=== PATIENT | female | born 1990 | race Caucasian/White ===

== ENCOUNTER → 2018-04-03 | Outpatient (REF) | payer BC ==
[2018-04-05 14:44] LABS: HPV HYBRID CAPTURE II Negative (Negative)
== END ==
LOC: M LAB REF 18:22
DX: Z12.4 Encounter for screening for malignant neoplasm of cervix (principal)
CPT/HCPCS: G0123

== ENCOUNTER → 2020-05-26 | Outpatient (REF) | payer BC, SELFPAY | LOC: M LAB REF 14:12 | PROVIDERS: ATTEND Family Medicine | DX: Z01.411 Encounter for gynecological examination (general) (routine) with abnormal findings (principal) ==

== ENCOUNTER → 2020-10-08 | Outpatient (REF) | payer OTHER ==
[2020-10-08 18:36] LABS: HEMATOCRIT 38.4 % (36.0-47.0); HEMOGLOBIN 12.5 g/dl (12.0-15.5); MEAN CORPUSCULAR HEMOGLOBIN 30.9 pg (27.0-33.0); MEAN CORPUSCULAR HGB CONC 32.6 g/dl (32.0-36.5); MEAN CORPUSCULAR VOLUME 94.8 fl (80.0-96.0); PLATELET COUNT, AUTOMATED 251 10^3/uL (150-450); RED BLOOD COUNT 4.05 10^6/uL (4.00-5.40); WHITE BLOOD COUNT 9.9 10^3/uL (4.0-10.0)
[2020-10-08 19:11] LABS: GLUCOSE CHALLENGE TEST 1 HOUR 124 MG/DL (LESS THAN 140)
[2020-10-08 20:05] LABS: HIV 1&2 SCREEN CENTAUR NEGATIVE (NEGATIVE)
[2020-10-08 20:43] LABS: CHLAMYDIA DNA AMPLIFICATION NEGATIVE (NEGATIVE); GC DNA AMPLIFICATION NEGATIVE (NEGATIVE)
== END ==
LOC: M PLALAB 14:20
PROVIDERS: ATTEND Advanced Practice Midwife
DX: O99.211 Obesity complicating pregnancy, first trimester (principal)

== ENCOUNTER → 2020-11-30 | Outpatient (CLI) | payer OTHER ==
--- NOTE | 2020-11-30 18:27 | REP ---
INDICATION: ANATOMY COMPARISON: None. TECHNIQUE: Transabdominal obstetrical ultrasound with color Doppler evaluation. FINDINGS: Examination demonstrates a single live intrauterine in cephalic presentation. motion is identified by technologist. Placenta is noted anteriorly and posteriorly and grade 0 with findings to suggest marginal previa. Amniotic fluid volume is normal. Cervix measures 3.2 cm in length and appears closed.. Gestational age by LMP 19 weeks 5 days with MAT 04/21/2021. Gestational age by current measurements 19 weeks 3 days with MAT 04/23/2021. FHR equals 144 beats per minute. BPD: 4.6 cm at 19 weeks 5 days HC: 16.8 cm at 19 weeks 3 days AC: 13.3 cm at 18 weeks 6 days FL: 3.2 cm at 19 weeks 6 days HL: 2.9 cm at 19 weeks 2 days HC/AC: 1.26 Estimated weight 285 grams (24thpercentile). Anatomical assessment demonstrates normal structures including cranium, choroid plexus, cavum, cerebellum/posterior fossa, diaphragm, stomach, kidneys/bladder, spine, and extremities. Limited evaluation of the facial features, heart/ventricular outflow tracts, three-vessel cord and cord insertion. IMPRESSION: 1. Single live intrauterine in cephalic presentation demonstrating relatively appropriate estimated weight. 2. Findings to suggest anterior and posterior portions of the placenta with marginal previa. 3. Anatomical limitations as described above. 4. Placental evaluation and anatomical limitations warrant follow-up examination. <Electronically signed by Vlad Anaya > 11/30/20 [id number]
== END ==
LOC: M WHC 14:58
PROVIDERS: ATTEND Advanced Practice Midwife
DX: Z36.9 Encounter for antenatal screening, unspecified (principal); Z3A.19 19 weeks gestation of pregnancy; O43.192 Other malformation of placenta, second trimester

== ENCOUNTER → 2020-12-23 | Outpatient (CLI) | payer OTHER ==
--- NOTE | 2020-12-24 06:23 | REP ---
INDICATION: F/U ANATOMY COMPARISON: 11/30/2020 TECHNIQUE: Transabdominal obstetrical ultrasound with color Doppler evaluation. FINDINGS: Examination demonstrates a single live intrauterine in breech presentation. motion is identified by technologist. Amniotic fluid volume is normal. Cervix measures 3.1 cm in length and appears closed. Current examination demonstrates a bilobed versus succenturiate placenta with anterior and posterior placental lobes. The cord insertion is identified along the left inferior margin of the anterior placental lobe and there is no evidence for placenta previa. Gestational age by LMP and 1st U/S 23 weeks 0 days with MAT 04/21/2021. Gestational age by current measurements 22 weeks 4 days with MAT 04/24/2021. FHR equals 152 beats per minute. Estimated weight 504 grams (20thpercentile). Anatomical assessment demonstrates normal structures including facial profile, nose/lips, heart/ventricular outflow tracts, stomach, bladder, spine, and three-vessel cord. IMPRESSION: 1. In conjunction with prior examination anatomical assessment is complete and normal. 2. Bilobed versus succenturiate placenta as described above. <Electronically signed by Vlad Anaya > 12/24/20 [id number]
== END ==
LOC: M WHC 12:28
PROVIDERS: ATTEND Advanced Practice Midwife
DX: O99.212 Obesity complicating pregnancy, second trimester (principal); O44.20 Partial placenta previa NOS or without hemorrhage, unspecified trimester; Z3A.22 22 weeks gestation of pregnancy

== ENCOUNTER → 2021-01-29 | Outpatient (REF) | payer OTHER ==
[2021-01-29 11:23] LABS: HEMATOCRIT 36.7 % (36.0-47.0); HEMOGLOBIN 12.2 g/dl (12.0-15.5); MEAN CORPUSCULAR HEMOGLOBIN 31.6 pg (27.0-33.0); MEAN CORPUSCULAR HGB CONC 33.2 g/dl (32.0-36.5); MEAN CORPUSCULAR VOLUME 95.1 fl (80.0-96.0); PLATELET COUNT, AUTOMATED 206 10^3/uL (150-450); RED BLOOD COUNT 3.86 10^6/uL (4.00-5.40); WHITE BLOOD COUNT 8.8 10^3/uL (4.0-10.0)
== END ==
LOC: M PLALAB 08:20
PROVIDERS: ATTEND Advanced Practice Midwife
DX: O99.212 Obesity complicating pregnancy, second trimester (principal)

== ENCOUNTER → 2021-03-02 | Outpatient (CLI) | payer OTHER ==
--- NOTE | 2021-03-03 06:17 | REP ---
INDICATION: PLACENTAL ABNORMALITY,EVALUATE PLACENTA,GROWTH COMPARISON: 12/13/2020 TECHNIQUE: Transabdominal obstetrical ultrasound with color Doppler evaluation. FINDINGS: Examination demonstrates a single live intrauterine in breech presentation. motion is identified by technologist. Placenta is noted with anterior and posterior lobes and grade 2 without evidence for placenta previa or abruption. Amniotic fluid volume is normal. Cervix measures 3.8 cm in length and appears closed.. Selected gestational age: 32 weeks 6 days with MAT 04/21/2021. Gestational age by current measurements 33 weeks 2 days with MAT 04/18/2021. FHR equals 149 beats per minute. BPD: 8.6 cm at 34 weeks 4 days HC: 31.1 cm at 34 weeks 5 days AC: 28.7 cm at 32 weeks 5 days FL: 6.3 cm at 32 weeks 3 days HL: 5.5 cm at 32 weeks 1 day HC/AC: 1.08 Estimated weight 2089 grams (44thpercentile). BONITA: 23.9 cm (8.3-24.5) Umbilical artery SD ratio: 2.72 (1.80-3.78) IMPRESSION: 1. Single live advanced gestation in breech presentation demonstrating appropriate interval growth. 2. Amniotic fluid index is upper limits of normal. 3. Bilobed appearance to the placenta. <Electronically signed by Vlad Anaya > 03/03/21 0601
== END ==
LOC: M WHC 13:44
PROVIDERS: ATTEND Advanced Practice Midwife
DX: Z36.89 Encounter for other specified antenatal screening (principal); Z3A.33 33 weeks gestation of pregnancy

== ENCOUNTER → 2021-03-19 | Outpatient (REF) | payer OTHER | LOC: M SFHCWAGY 16:44 | PROVIDERS: ATTEND Advanced Practice Midwife | DX: O99.343 Other mental disorders complicating pregnancy, third trimester (principal) ==

== ENCOUNTER 2021-03-31 09:04 | Inpatient (IN) | payer OTHER ==
[~2021-03-31] VITALS: Ht 160 cm; Wt 99.9 kg
[2021-03-31] VITALS (24 sets, daily range): BP systolic 136–186; BP diastolic 79–112
[2021-03-31] MEDS ORDERED: PRENTAB9 PO (10:00)
[2021-03-31] MEDS ORDERED: OMEP-218 (10:00)
[2021-03-31] MEDS ORDERED: CITA20TA6 (10:00)
[2021-03-31] MEDS ORDERED: ERGO500029 (10:00)
[2021-03-31 10:05] LABS: HEMATOCRIT 39.5 % (36.0-47.0); HEMOGLOBIN 13.3 g/dl (12.0-15.5); MEAN CORPUSCULAR HEMOGLOBIN 31.2 pg (27.0-33.0); MEAN CORPUSCULAR HGB CONC 33.7 g/dl (32.0-36.5); MEAN CORPUSCULAR VOLUME 92.7 fl (80.0-96.0); PLATELET COUNT, AUTOMATED 175 10^3/uL (150-450); RED BLOOD COUNT 4.26 10^6/uL (4.00-5.40); WHITE BLOOD COUNT 9.3 10^3/uL (4.0-10.0)
[2021-03-31 10:23] LABS: TOTAL PROTEIN,RANDOM URINE 880.5 MG/DL (0.0-12.0)
[2021-03-31 10:33] LABS: ALT/SGPT 10 U/L (12-78); BILIRUBIN,TOTAL 0.3 MG/DL (0.2-1.0); CREATININE FOR GFR 0.75 MG/DL (0.55-1.30); GLOMERULAR FILTRATION RATE > 60.0 (>60); LDH LACTATE DEHYDROGENASE 309 U/L (84-246); URIC ACID 7.2 MG/DL (2.6-6.0)
[2021-03-31] MEDS ORDERED: LACTATED RINGER'S 1000 ML IV STA (13:17)
[2021-03-31] MEDS ORDERED: BICITRA 30ML SOLN UDC PO ONE (13:20)
[2021-03-31] MEDS ORDERED: ceFAZolin SOD 2 GM in IV 1 EA IV ONE (13:20)
[2021-03-31] MEDS ORDERED: MORPHINE PRES-FREE INJ 10 MG/10 ML VIAL (J2274) As Ordered ONE (14:15)
[2021-03-31] MEDS ORDERED: OXYTOCIN 30 UNITS IN 0.9% NaCl 500ML IV BAG (J2590) As Ordered ONE ×2 (14:16→16:30)
--- NOTE | 2021-03-31 14:29 | HPE ---
HISTORY AND PHYSICAL DATE OF ADMISSION: 03/31/2021 ADMITTING DIAGNOSIS: Kaity is a 31-year-old 1, para 0 at 37 weeks' gestation, EDC of 04/21/2021 based on last menstrual period and confirmed by first trimester ultrasound. She presents to labor and delivery today following a routine appointment in the office where she was noted to have a blood pressure in the severe range. HISTORY OF PRESENT ILLNESS: She was diagnosed with preeclampsia last week and has undergone reassuring antepartal testing. She denies current headache, visual disturbances, epigastric pain and right upper quadrant discomfort. She denies contractions, vaginal bleeding, and leakage of fluid. Her care was initiated at [facility] in the first trimester. course complicated by a history of anxiety and depression, obesity. She did have a marginal placenta previa that resolved. She has a bilobed placenta versus a succenturiate placenta with anterior and posterior lobes noted on ultrasound 03/03/2021 that does report no evidence of previa. Preeclampsia diagnosed at 36 weeks gestation with a worsening of blood pressures and labs today. OBSTETRIC HISTORY: Prima . OBSTETRIC LABS: Blood type is O positive. Antibody screen is negative. Her syphilis is nonreactive. Chlamydia and gonorrhea negative. Hepatitis B surface antigen negative. Hepatitis C antibody nonreactive. HIV nonreactive. Rubella immune. Gestational diabetic screening elevated at 139. I do not see that she underwent a three hour glucose tolerance test. Urine culture with no growth and her GBS was positive. PAST MEDICAL HISTORY: Anxiety, depression. SURGERIES: Knee surgery times two, breast reduction, fasciotomy for compartment syndrome of both knees. FAMILY HISTORY: Noncontributory. SOCIAL HISTORY: The patient is . Her is at bedside. She is a nonsmoker. She denies alcohol and drug use. There is no history of sexually transmitted infections and she denies history of abuse, physical, sexual and emotional. ALLERGIES: No known drug allergies. CURRENT MEDICATIONS: vitamin. OBJECTIVE: Temperature 98.7, pulse 71, blood pressures are 144/88, 151/93. heart rate is 130 with moderate variability, positive accelerations, negative decelerations. There is no pattern of contractions. Her abdomen is gravid. Breech presentation which is confirmed by bedside ultrasound today. Sterile vaginal exam is deferred. Her repeat preeclamptic labs with a spot urine of 4.73. Hemoglobin 13.3, hematocrit 39.5, and platelets are 175. Her creatinine is 0.75. AST 26, ALT 10, LDH 309. Uric acid 7.2. ASSESSMENT: Intrauterine at 37 weeks gestation. heart rate category 1. Breech presentation. Preeclampsia, worsening. PLAN: Per consult with Dr. Shlomo Gutierrez, admit the patient to labor and delivery. Move towards delivery today via primary section. Routine laboratories. IV fluid bolus, surgical antibiotic prophylaxis. The patient has been counseled regarding risks, benefits, and alternatives. All of her and her 's questions have been answered. She has been verbally consented for blood products if they are necessary.
[2021-03-31] MEDS: LR 1,000 ML IV SCH ×2 (14:50→21:20)
[2021-03-31] MEDS ORDERED: METOCLOPRAMIDE INJ 10MG/2ML VIAL (J2765 PER 1) IV PRN (15:09)
[2021-03-31] MEDS ORDERED: NALOXONE INJ 0.4MG/1ML VIAL (J2310 PER 1MG) IV PRN ×2 (15:09)
[2021-03-31] MEDS ORDERED: ONDANSETRON 4MG/2ML VIAL IV PRN ×3 (15:09→16:20)
[2021-03-31] MEDS ORDERED: NALBUPHINE HCL 10 MG/ML AMP (J2300) IV PRN ×2 (15:09→16:20)
[2021-03-31] MEDS ORDERED: diphenhydrAMINE 50MG/ML VIAL (J1200) IV PRN (15:09)
[2021-03-31] MEDS ORDERED: dexameTHASONE 4 MG/ML 1ML VIAL (J1100 PER 1MG) As Ordered ONE (15:18)
[2021-03-31] MEDS ORDERED: ONDANSETRON 4MG/2ML VIAL As Ordered ONE (15:18)
[2021-03-31] MEDS ORDERED: KETOROLAC 60MG 2ML VIAL As Ordered ONE (15:19)
[2021-03-31] MEDS: OXYTOCIN DRIP 30 UNITS in IV 1 EA IV SCH ×2 (15:21→16:38)
[2021-03-31] MEDS ORDERED: PHENYLephrine 500MCG 5ML (100MCG/ML) SYRINGE As Ordered ONE (15:40)
[2021-03-31 15:46] LABS: CORD GAS ABE A -6.1; CORD GAS O2 SAT A 43.7 %; CORD GAS PCO2 A 54.6 mmHg; CORD GAS PH A 7.224 UNITS; CORD GAS PO2 A 22.4 mmHg; CORD GAS SBC A 18.3 MEQ/L; CORD GAS TCO2 A 23.7 MEQ/L
[2021-03-31 15:48] LABS: CORD GAS ABE V -6.4; CORD GAS HCO3 V 19.4 MEQ/L; CORD GAS O2 SAT V 77.4 %; CORD GAS PCO2 V 39.9 mmHg; CORD GAS PH V 7.305 UNITS; CORD GAS PO2 V 34.6 mmHg; CORD GAS SBC V 18.8 MEQ/L; CORD GAS TCO2 V 20.6 MEQ/L
[2021-03-31] MEDS ORDERED: IBUPROFEN 600MG TAB PO PRN (15:50)
[2021-03-31] MEDS ORDERED: MEASLES,MUMPS,RUBELLA VACCINE INJ (MMR-II) (90707) SC SCH (15:50)
[2021-03-31] MEDS ORDERED: SIMETHICONE 80MG CHEW TAB PO PRN (15:50)
[2021-03-31] MEDS ORDERED: METHYLERGONOVINE MALEATE 0.2 MG/ML VIAL (J2210) IM PRN (15:50)
[2021-03-31] MEDS ORDERED: RHOGAM 300 MCG (1500 IU) INJ (J2790) IM SCH (15:50)
[2021-03-31] MEDS ORDERED: HYDROMORPHONE HCL 0.5 MG/ 0.5 ML SYRINGE (J1170 PER 1) IV PRN (16:20)
[2021-03-31] MEDS ORDERED: oxyCODONE 5MG TAB PO PRN (16:20)
[2021-03-31] MEDS ORDERED: fentaNYL 100 MCG/2 ML INJECTION (J3010) IV PRN (16:20)
[2021-03-31] MEDS ORDERED: MEPERIDINE INJ 25 MG/ML VIAL (J2175) IV PRN (16:20)
[2021-03-31] MEDS ORDERED: OXYTOCIN DRIP 30 UNITS in IV 1 EA IV SCH (16:35)
--- NOTE | 2021-03-31 17:29 | RO ---
OPERATIVE NOTE DATE OF OPERATION: 03/31/2021 Kaity is a 31-year-old female, para 0, who was admitted at 37 weeks gestation after being diagnosed with preeclampsia. She was also found to be breech on admission. After an extensive counseling with the patient and her partner, decision was made to proceed with delivery via a section. PREOPERATIVE DIAGNOSIS: 1. Intrauterine at 37 weeks gestation. 2. Preeclampsia. 3. Breech presentation, desires primary section. POSTOPERATIVE DIAGNOSIS: 1. Intrauterine at 37 weeks gestation. 2. Preeclampsia. 3. Breech presentation, desires primary section. 4. A bilobed placenta which what appeared would be a vasa previa, both an anterior and posterior segment of the placenta noted. PROCEDURE: Primary low transverse section. SURGEON: Shlomo Gutierrez DO MULTIFOCAL BUTTON INSPECTOR: Sol Greco CNM ANESTHESIA: Spinal. FINDINGS: Live female infant in double footling breech position with what appeared to be a vasa previa and two anterior and posterior lobes of the placenta. Normal appearing tubes and ovaries. was 8-9, weight 5 lb, 13 oz. i DESCRIPTION OF PROCEDURE: After obtaining informed consent, the patient was taken to the operating room where a spinal anesthetic was found to be adequate. She was then draped and prepped in the usual sterile fashion in the supine position. At this point, a York catheter was placed in the bladder for drainage. A Pfannenstiel incision was made with the first knife, carried down to the fascia with the help of Kandace Greco. The fascia was incised in a midline fashion and carried through laterally. The superior aspect of the fascia was then grasped with a Mallory clamp, tented off and dissected off the rectus muscles sharply. The inferior aspect was dissected off in a similar fashion. The rectus muscles were in midline fashion. The peritoneum was identified. The peritoneal cavity was entered bluntly. Superior and inferior dissection in the peritoneum was then done with good visualization of the bladder. At this point, a Mobius skin retractor was placed. A low transverse uterine incision was made. The was delivered in atraumatic fashion via breech extraction. The nose and mouth were bulb suctioned. The cord was doubly clamped and cut and the infant was handed over to awaiting warmer. Cord blood and cord gas were sent. The placenta was removed manually. The uterus was cleared of all clot and debris and the uterine incision was repaired in two separate layers of 0 Vicryl suture. The pelvis was copiously with normal saline and suctioned out. Attention turned to the peritoneum which was closed in a running fashion using 2-0 Vicryl. The fascia was closed in two separate segments of 0 Vicryl sutures and the skin was reapproximated in subcuticular fashion using 3-0 Vicryl on a Gualberto. Steri-Strips were placed. The patient tolerated the procedure well. She was then transferred to recovery room in stable condition. [facility]
[2021-03-31] MEDS: KETOROLAC 30 MG/ML 1ML VIAL IV SCH (21:17)
[2021-03-31] MEDS: CitaloPRAM (CeleXA) 20 MG TAB PO SCH (21:17)
[2021-03-31] MEDS: DOCUSATE SODIUM 100MG CAPSULE PO SCH (21:17)
[2021-03-31] MEDS ORDERED: LABETALOL 100MG/20ML VIAL IV STA (22:26)
[2021-03-31] MEDS ORDERED: LABETALOL 100MG/20ML VIAL As Ordered ONE (22:27)
[2021-03-31] MEDS: LABETALOL 200 MG TAB PO SCH (22:59)
[2021-04-01] MEDS ORDERED: LR 500 ML IV ONE ×3 (00:05→04:05)
[2021-04-01 02:00] VITALS: BP 138/90
[2021-04-01] MEDS: KETOROLAC 30 MG/ML 1ML VIAL IV SCH ×2 (03:37→09:20)
[2021-04-01] MEDS: LR 1,000 ML IV SCH (05:20)
[2021-04-01 05:51] VITALS: BP 158/102
[2021-04-01 08:30] LABS: HEMATOCRIT 34.3 % (36.0-47.0); HEMOGLOBIN 11.4 g/dl (12.0-15.5); MEAN CORPUSCULAR HEMOGLOBIN 31.3 pg (27.0-33.0); MEAN CORPUSCULAR HGB CONC 33.2 g/dl (32.0-36.5); MEAN CORPUSCULAR VOLUME 94.2 fl (80.0-96.0); PLATELET COUNT, AUTOMATED 186 10^3/uL (150-450); RED BLOOD COUNT 3.64 10^6/uL (4.00-5.40); WHITE BLOOD COUNT 18.8 10^3/uL (4.0-10.0)
[2021-04-01] MEDS: PRENATAL VITAMINS CHEWABLE TABLET PO SCH (09:19)
[2021-04-01] MEDS: DOCUSATE SODIUM 100MG CAPSULE PO SCH ×2 (09:19→21:11)
[2021-04-01] MEDS: LABETALOL 200 MG TAB PO SCH ×2 (09:20→21:11)
[2021-04-01 10:00] VITALS: BP 138/90
[2021-04-01] MEDS ORDERED: SLF 3 ML SYR IV PRN (10:55)
[2021-04-01] MEDS: PERCOCET 5MG/325MG TAB PO PRN ×2 (13:21→18:15)
[2021-04-01 14:00] VITALS: BP 148/92
[2021-04-01] MEDS: SLF 3 ML SYR IV SCH ×2 (14:00→22:00)
[2021-04-01 18:00] VITALS: BP 150/96
[2021-04-01] MEDS: IBUPROFEN 800 MG TAB PO PRN (18:13)
[2021-04-01] MEDS: CitaloPRAM (CeleXA) 20 MG TAB PO SCH (21:11)
[2021-04-01 22:00] VITALS: BP 156/96
[2021-04-02 02:00] VITALS: BP 158/102
[2021-04-02] MEDS: PERCOCET 5MG/325MG TAB PO PRN ×3 (02:30→20:01)
[2021-04-02] MEDS: IBUPROFEN 800 MG TAB PO PRN ×3 (03:09→22:31)
[2021-04-02 06:00] VITALS: BP 152/96
--- NOTE | 2021-04-02 07:32 | IPNPDOC ---
Progress Note Date of Service: Apr 02, 2021 Progress Note SUBJECT: still with some pain, tolerating diet OBJECTIVE: VITAL SIGNS: Within normal limits, afebrile. Alert and oriented times three. Breath sounds clear to auscultation. Heart rate: Regular rate and rhythm, no murmurs, rubs or gallops. Abdomen: Fundus firm at U-2. Soft, NTTP. [Minimal] lochia. ASSESSMENT:POD#2 s/p PLAN: Possible discharge today routine post op care VS, I&O, 24H, Juan Carlos Vital Signs/I&O Vital Signs Date Time Temp Pulse Resp B/P (MAP) Pulse Ox O2 Delivery O2 Flow Rate FiO2 04/02/21 06:00 97.6 86 14 152/96 (114) 96 Room Air I&O- Last 24 Hours up to 6 AM 04/02/21 06:00 Output Total 1100 ml Balance -1100 ml Laboratory Data 24H LABS Laboratory Tests 2 04/01/21 07:51: Nucleated Red Blood Cells % (auto) 0.0 CBC/BMP Laboratory Tests 04/01/21 07:51 PILO GARCIA MD Apr 02, 2021 07:32
[2021-04-02 08:15] VITALS: BP 152/96
[2021-04-02] MEDS: DOCUSATE SODIUM 100MG CAPSULE PO SCH ×2 (09:43→20:49)
[2021-04-02] MEDS: PRENATAL VITAMINS CHEWABLE TABLET PO SCH (09:44)
[2021-04-02] MEDS: LABETALOL 200 MG TAB PO SCH ×2 (09:44→20:49)
[2021-04-02] MEDS ORDERED: LR 1,000 ML IV ONE (14:30)
[2021-04-02 18:01] VITALS: BP 148/92
[2021-04-02] MEDS: CitaloPRAM (CeleXA) 20 MG TAB PO SCH (20:49)
[2021-04-02 20:52] VITALS: BP 159/92
[2021-04-02] MEDS: SLF 3 ML SYR IV SCH (22:00)
[2021-04-03] MEDS: PERCOCET 5MG/325MG TAB PO PRN ×2 (02:10→09:29)
[2021-04-03] MEDS: IBUPROFEN 800 MG TAB PO PRN (05:56)
[2021-04-03] MEDS: SLF 3 ML SYR IV SCH (05:56)
[2021-04-03 06:22] VITALS: BP 156/82
[2021-04-03] MEDS: PRENATAL VITAMINS CHEWABLE TABLET PO SCH (09:28)
[2021-04-03] MEDS: DOCUSATE SODIUM 100MG CAPSULE PO SCH (09:28)
[2021-04-03] MEDS: LABETALOL 200 MG TAB PO SCH (09:29)
[2021-04-03 09:40] VITALS: BP 161/98
[2021-04-03 09:55] VITALS: BP 164/98
[2021-04-03] MEDS ORDERED: LABETALOL 100MG TAB PO STA (10:07)
[2021-04-03] MEDS ORDERED: LABE20TAB PO (10:49)
[2021-04-03] MEDS ORDERED: PERCOCET PO (10:49)
[2021-04-03] MEDS ORDERED: IBUP80TA PO (10:49)
--- NOTE | 2021-04-03 10:51 | DS.PDOC ---
Discharge Summary General Date of Admission Mar 31, 2021 at 13:02 Date of Discharge 04/03/21 Attending Physician: PILO GARCIA MD Discharge Summary PROCEDURES PERFORMED DURING STAY: 1. Spinal anesthesia 2. section . ADMITTING DIAGNOSES: 1. Preeclampsia 2. Breech presentation. DISCHARGE DIAGNOSES: 1. Preeclampsia 2. Breech presentation. 3. Vasa previa COMPLICATIONS/CHIEF COMPLAINT: Elevated Bp. HISTORY OF PRESENT ILLNESS: Mrs. Mir presented for section for breech presentation preeclampsia She underwent a repeat section, productive of live born female infant a Apgars were 8 and 9 weight was 5 lbs. 13 oz. vasa previa was diagnosed time section. Patient did well postoperatively by postoperative day #2 had met all discharge criteria is as discharged home in stable condition DISCHARGE MEDICATIONS: Please see below. ALLERGIES: Please see below. PHYSICAL EXAMINATION ON DISCHARGE: VITAL SIGNS: Please see below. GENERAL: No distress HEENT: WNL ABDOMINAL EXAMINATION: Fundus firm. Dressing intact EXTREMITIES: Equal strength and motion SKIN: Intact NEUROLOGICAL EXAMINATION: Grossly intact PSYCHIATRIC EXAMINATION: Appropriate LABORATORY DATA: Please see below. PROGNOSIS: Good ACTIVITY: As tolerated. Pelvic rest. DIET: As tolerated DISCHARGE PLAN: Discharge today. Remove dressing day 5 DISPOSITION: Home DISCHARGE INSTRUCTIONS: 1. Pelvic rest. Continue vitamins. Medications as ordered. Call with fever, nausea, vomiting, chills, foul lochia, wound exudate or evidence infection. RTO early next week for blood pressure check. DISCHARGE CONDITION: Stable Vital Signs/I&Os Vital Signs Date Time Temp Pulse Resp B/P (MAP) Pulse Ox O2 Delivery O2 Flow Rate FiO2 04/03/21 09:55 164/98 (120) 04/03/21 09:40 97.0 85 18 97 Room Air Discharge Medications Scheduled Labetalol HCl (Labetalol HCl) 200 Mg Tablet, 200 MG PO TID No.137/Iron/Folic Acd ( Vitamin Tablet) 1 Each Tablet, 1 TAB PO DAILY, (Reported) Scheduled PRN Ibuprofen (Ibuprofen) 800 Mg Tablet, 800 MG PO Q8HP PRN for PAIN LEVEL 6-10 Oxycodone/Acetaminophen (Oxycodone-Acetaminophen 5-325) 1 Each Tablet, 1 TAB PO Q4H PRN for MILD/MODERATE PAIN (PS 1-7) Miscellaneous Medications Citalopram Hydrobromide (Citalopram HBr) 20 Mg Tablet, (Reported) Ergocalciferol (Vitamin D2) (Vitamin D2) 50,000 Units Cap, (Reported) Omeprazole (Omeprazole) 20 Mg Capsule., (Reported) Allergies Coded Allergies: No Known Allergies (Unverified , 03/31/21) ZEYAD ENG MD. Apr 03, 2021 10:51
[2021-04-03 10:52] VITALS: BP 157/91
== END 2021-04-03 13:25 | disposition home or self-care (01) | DRG 788 ==
LOC: M LDO 09:04 → M LDI 13:02 → M OBS 17:51
PROVIDERS: ADMIT Advanced Practice Midwife; ATTEND Advanced Practice Midwife
PROC: 10D00Z1 Extraction of Products of Conception, Low, Open Approach (ICD-10-PCS; principal; 2021-03-31 13:40)
DX: O32.1XX0 Maternal care for breech presentation, not applicable or unspecified (principal); Z3A.37 37 weeks gestation of pregnancy; Z37.0 Single live birth; O99.824 Streptococcus B carrier state complicating childbirth; O99.214 Obesity complicating childbirth; E66.9 Obesity, unspecified; O69.4XX0 Labor and delivery complicated by vasa previa, not applicable or unspecified; O14.04 Mild to moderate pre-eclampsia, complicating childbirth

== ENCOUNTER → 2021-08-27 | Outpatient (CLI) | payer BC, OTHER ==
[~2021-08-27] MED LIST: CITA20TA6; ERGO500029; IBUP80TA PO; LABE20TAB PO; OMEP-218; PERCOCET PO; PRENTAB9 PO
[2021-08-27 15:28] LABS: BASO # 0.1 10^3/uL (0.0-0.2); BASO % 0.9 % (0.0-1.0); EOS # 0.2 10^3/uL (0.0-0.5); EOS % 2.5 % (0.0-3.0); HEMATOCRIT 41.7 % (36.0-47.0); HEMOGLOBIN 14.2 g/dl (12.0-15.5); LYMPH # 2.7 10^3/uL (1.5-5.0); LYMPH % 34.3 % (24.0-44.0); MEAN CORPUSCULAR HEMOGLOBIN 31.8 pg (27.0-33.0); MEAN CORPUSCULAR HGB CONC 34.1 g/dl (32.0-36.5); MEAN CORPUSCULAR VOLUME 93.3 fl (80.0-96.0); MONO # 0.7 10^3/uL (0.0-0.8); MONO % 9.2 % (2.0-8.0); NEUTROPHILS # 4.2 10^3/uL (1.5-8.5); NEUTROPHILS % 52.5 % (36.0-66.0); PLATELET COUNT, AUTOMATED 266 10^3/uL (150-450); RED BLOOD COUNT 4.47 10^6/uL (4.00-5.40); WHITE BLOOD COUNT 7.9 10^3/uL (4.0-10.0)
== END ==
LOC: M PLALAB 12:03
PROVIDERS: ATTEND Family Medicine
DX: L65.9 Nonscarring hair loss, unspecified (principal)

== ENCOUNTER → 2021-09-15 | Outpatient (CLI) | payer BC | LOC: M LABSMTC 12:40 | PROVIDERS: ATTEND Pediatrics | DX: Z20.822 Contact with and (suspected) exposure to COVID-19 (principal) | CPT/HCPCS: C9803; U0003 ==

== ENCOUNTER → 2021-10-04 | Outpatient (CLI) | payer BC | LOC: M LABSMTC 13:37 | PROVIDERS: ATTEND Pediatrics | DX: Z11.52 Encounter for screening for COVID-19 (principal) | CPT/HCPCS: C9803; U0003 ==

== ENCOUNTER → 2021-10-27 | Outpatient (REF) ==
[~2021-10-27] MED LIST changes: +OMEP-173; -OMEP-218
== END ==
LOC: M LABSMTC 11:44
PROVIDERS: ATTEND Pediatrics
DX: Z11.52 Encounter for screening for COVID-19 (principal)

== ENCOUNTER → 2023-10-04 | Outpatient (CLI) | payer BC, OTHER | LOC: M PLALAB 10:09 | PROVIDERS: ATTEND Advanced Practice Midwife | DX: Z01.419 Encounter for gynecological examination (general) (routine) without abnormal findings (principal) ==

== ENCOUNTER → 2023-10-25 | Outpatient (CLI) | payer BC | LOC: M WHC 13:13 | PROVIDERS: ATTEND Advanced Practice Midwife | DX: N64.52 Nipple discharge (principal); R92.333 Mammographic heterogeneous density, bilateral breasts; N60.02 Solitary cyst of left breast | CPT/HCPCS: 76642; 77066; G0279 ==

== ENCOUNTER → 2024-01-17 | Outpatient (CLI) | payer BC ==
[2024-01-17 14:16] LABS: BASO # 0.1 10^3/uL (0.0-0.2); BASO % 0.9 % (0.0-1.0); EOS # 0.2 10^3/uL (0.0-0.5); EOS % 2.8 % (0.0-3.0); HEMATOCRIT 39.8 % (36.0-47.0); HEMOGLOBIN 13.5 g/dl (12.0-15.5); LYMPH # 2.2 10^3/uL (1.5-5.0); LYMPH % 39.6 % (24.0-44.0); MEAN CORPUSCULAR HEMOGLOBIN 31.7 pg (27.0-33.0); MEAN CORPUSCULAR HGB CONC 33.9 g/dl (32.0-36.5); MEAN CORPUSCULAR VOLUME 93.4 fl (80.0-96.0); MONO # 0.4 10^3/uL (0.0-0.8); MONO % 6.9 % (2.0-8.0); NEUTROPHILS # 2.8 10^3/uL (1.5-8.5); NEUTROPHILS % 49.4 % (36.0-66.0); PLATELET COUNT, AUTOMATED 303 10^3/uL (150-450); RED BLOOD COUNT 4.26 10^6/uL (4.00-5.40); WHITE BLOOD COUNT 5.7 10^3/uL (4.0-10.0)
[2024-01-17 14:46] LABS: ALBUMIN 3.9 G/DL (3.2-5.2); ALKALINE PHOSPHATASE 57 U/L (46-116); ALT/SGPT 46 U/L (7.0-40); AST/SGOT 35 U/L (<34); BILIRUBIN,DIRECT 0.1 MG/DL (<0.4); BILIRUBIN,TOTAL 0.4 MG/DL (0.3-1.2); BLOOD UREA NITROGEN 6 MG/DL (9-23); CARBON DIOXIDE LEVEL 29 MMOL/L (20-31); CHLORIDE LEVEL 103 MMOL/L (98-107); CREATININE FOR GFR 0.59 MG/DL (0.55-1.30); GLOMERULAR FILTRATION RATE > 60.0 (>60); GLUCOSE, FASTING 91 MG/DL (60-100); POTASSIUM SERUM 4.2 MMOL/L (3.5-5.1); SODIUM LEVEL 137 MMOL/L (136-145); TOTAL PROTEIN 6.8 G/DL (5.7-8.2)
[2024-01-17 14:47] LABS: THYROID STIMULATING HORMONE 1.916 uIU/ML (0.55-4.78)
== END ==
LOC: M RAD 13:13
PROVIDERS: ATTEND Family Medicine
DX: Z00.00 Encounter for general adult medical examination without abnormal findings (principal); K59.00 Constipation, unspecified

== ENCOUNTER → 2024-03-06 | Outpatient (CLI) | payer BC | LOC: M RAD 10:21 | PROVIDERS: ATTEND Registered Nurse | DX: M79.641 Pain in right hand (principal) ==

== ENCOUNTER → 2024-12-06 | Outpatient (CLI) | payer BC ==
[2024-12-06 14:32] LABS: BASO # 0.1 10^3/uL (0.0-0.2); BASO % 1.2 % (0.0-1.0); EOS # 0.1 10^3/uL (0.0-0.5); EOS % 2.3 % (0.0-3.0); HEMATOCRIT 39.8 % (36.0-47.0); HEMOGLOBIN 13.4 g/dl (12.0-15.5); LYMPH # 1.6 10^3/uL (1.5-5.0); LYMPH % 32.1 % (24.0-44.0); MEAN CORPUSCULAR HEMOGLOBIN 32.1 pg (27.0-33.0); MEAN CORPUSCULAR HGB CONC 33.7 g/dl (32.0-36.5); MEAN CORPUSCULAR VOLUME 95.2 fl (80.0-96.0); MONO # 0.4 10^3/uL (0.0-0.8); MONO % 8.6 % (2.0-8.0); NEUTROPHILS # 2.8 10^3/uL (1.5-8.5); NEUTROPHILS % 55.4 % (36.0-66.0); PLATELET COUNT, AUTOMATED 225 10^3/uL (150-450); RED BLOOD COUNT 4.18 10^6/uL (4.00-5.40); WHITE BLOOD COUNT 5.1 10^3/uL (4.0-10.0)
[2024-12-06 14:58] LABS: IMMUNOGLOBULIN A 181.5 MG/DL (40-350)
[2024-12-06 15:00] LABS: ALBUMIN 3.8 G/DL (3.2-5.2); ALKALINE PHOSPHATASE 52 U/L (35-104); ALT/SGPT 27 U/L (7.0-40); AST/SGOT 21 U/L (<34); BILIRUBIN,TOTAL 0.6 MG/DL (0.3-1.2); BLOOD UREA NITROGEN 7 MG/DL (9-23); CALCIUM LEVEL 8.6 MG/DL (8.5-10.1); CARBON DIOXIDE LEVEL 26 MMOL/L (20-31); CHLORIDE LEVEL 106 MMOL/L (98-107); CREATININE FOR GFR 0.63 MG/DL (0.55-1.30); GLOMERULAR FILTRATION RATE > 60.0 (>60); GLUCOSE, FASTING 84 MG/DL (60-100); POTASSIUM SERUM 4.7 MMOL/L (3.5-5.1); SODIUM LEVEL 142 MMOL/L (136-145)
== END ==
LOC: M PLALAB 08:32
PROVIDERS: ATTEND Internal Medicine Gastroenterology
DX: R19.4 Change in bowel habit (principal)

== ENCOUNTER → 2024-12-06 | Outpatient (CLI) | payer BC ==
[2024-12-06 14:35] LABS: BASO # 0.1 10^3/uL (0.0-0.2); BASO % 1.2 % (0.0-1.0); EOS # 0.1 10^3/uL (0.0-0.5); EOS % 2.7 % (0.0-3.0); HEMATOCRIT 39.9 % (36.0-47.0); HEMOGLOBIN 13.4 g/dl (12.0-15.5); LYMPH # 1.8 10^3/uL (1.5-5.0); LYMPH % 33.8 % (24.0-44.0); MEAN CORPUSCULAR HEMOGLOBIN 32.1 pg (27.0-33.0); MEAN CORPUSCULAR HGB CONC 33.6 g/dl (32.0-36.5); MEAN CORPUSCULAR VOLUME 95.5 fl (80.0-96.0); MONO # 0.5 10^3/uL (0.0-0.8); MONO % 8.8 % (2.0-8.0); NEUTROPHILS # 2.8 10^3/uL (1.5-8.5); NEUTROPHILS % 53.1 % (36.0-66.0); PLATELET COUNT, AUTOMATED 223 10^3/uL (150-450); RED BLOOD COUNT 4.18 10^6/uL (4.00-5.40); WHITE BLOOD COUNT 5.2 10^3/uL (4.0-10.0)
[2024-12-06 15:01] LABS: ALBUMIN 3.8 G/DL (3.2-5.2); ALKALINE PHOSPHATASE 52 U/L (35-104); ALT/SGPT 29 U/L (7.0-40); AST/SGOT 20 U/L (<34); BILIRUBIN,TOTAL 0.6 MG/DL (0.3-1.2); BLOOD UREA NITROGEN 6 MG/DL (9-23); CALCIUM LEVEL 8.8 MG/DL (8.5-10.1); CARBON DIOXIDE LEVEL 24 MMOL/L (20-31); CHLORIDE LEVEL 108 MMOL/L (98-107); CHOLESTEROL LEVEL 170 MG/DL (<200); CHOLESTEROL RISK RATIO 3.81 (<5); CREATININE FOR GFR 0.65 MG/DL (0.55-1.30); GLOMERULAR FILTRATION RATE > 60.0 (>60); GLUCOSE, FASTING 82 MG/DL (60-100); HDL CHOLESTEROL 44.6 MG/DL (>40); NON-HDL-C 125.4 MG/DL; POTASSIUM SERUM 4.9 MMOL/L (3.5-5.1); SODIUM LEVEL 141 MMOL/L (136-145); TRIGLYCERIDES LEVEL 122 MG/DL (<150)
[2024-12-06 15:02] LABS: THYROID STIMULATING HORMONE 1.561 uIU/ML (0.55-4.78)
== END ==
LOC: M PLALAB 08:30
PROVIDERS: ATTEND Family Medicine
DX: K59.00 Constipation, unspecified (principal)

== ENCOUNTER → 2024-12-08 | Outpatient (REF) | payer BC | LOC: M LAB REF 12:02 | PROVIDERS: ATTEND Internal Medicine Gastroenterology | DX: R19.4 Change in bowel habit (principal) ==

== ENCOUNTER → 2025-05-16 | Outpatient (REF) | payer BC | LOC: M SFHCWAGY 14:07 | PROVIDERS: ATTEND Advanced Practice Midwife | DX: L29.2 Pruritus vulvae (principal); N90.60 Unspecified hypertrophy of vulva ==